=== PATIENT | female | born 1980 | race American Indian/Alaskan Native ===

== ENCOUNTER 2020-02-24 08:59 | Outpatient (CLI) | payer BC ==
--- NOTE | 2020-02-24 09:55 | Ultrasound Report ---
EXAMINATION: Bilateral Complete Breast Ultrasound, 02/24/2020 INDICATION: The patient reports generalized bilateral breast pain. COMPARISON: Bilateral mammogram, 02/09/2020 FINDINGS: Complete sonographic evaluation of all 4 quadrants and retroareolar region was performed. Right breast: There is no evidence of suspicious solid mass or shadowing in the right breast. There i s no focal abnormality to account for the patient's pain. Left breast: There is no evidence of suspicious solid mass or shadowing in the left breast. There is no focal abnormality to account for the patient's pain. IMPRESSION: Follow up recommendation: Clinical exam BI-RADS Category 1: Negative. No sonographic abnormality to account for the patient's bilateral [address] pain. Therefore, clinical correlation is recommended. A normal or "negative" report should not preclude biopsy or follow-up of a clinically suspicious find ing. Signer Name: Carisa Culp MD Signed: 02/24/2020 9:51 AM Workstation Name: [id number]
== END 2020-02-24 09:00 | disposition home or self-care (01) ==
LOC: SPVWC 08:59
PROVIDERS: ATTEND Surgery
DX: N64.4 Mastodynia (principal)